=== PATIENT | female | born 1955 | race Caucasian/White ===

== ENCOUNTER 2017-03-23 09:54 | Emergency (ER) | payer MEDICAID ==
[~2017-03-23] VITALS: Ht 162.6 cm; Wt 78.9 kg
[2017-03-23] MEDS ORDERED: SODIUM CHLORIDE FLUSH 10ML SYR IVF ONE (10:30)
[2017-03-23] MEDS ORDERED: SODIUM CHLORIDE 0.9% 1,000ML IVBOLUS ONE ×2 (10:30→12:30)
[2017-03-23] MEDS ORDERED: KETOROLAC 30 MG/1 ML IVPush ONE (10:30)
[2017-03-23] MEDS ORDERED: ONDANSETRON 2MG/ML, 2ML IVPush ONE (10:30)
[2017-03-23] MEDS ORDERED: KETOROLAC 30 MG/1 ML ONE (10:32)
[2017-03-23] MEDS ORDERED: ONDANSETRON 2MG/ML, 2ML ONE (10:33)
[2017-03-23 10:54] LABS: BASOPHILS # (AUTO) 0.03 x10^3/uL (0-0.1); BASOPHILS % (AUTO) 0 % (0-1); EOSINOPHILS # (AUTO) 0.08 x10^3/uL (0-0.4); EOSINOPHILS % (AUTO) 1 % (1-7); LYMPHOCYTES # (AUTO) 2.18 x10^3/uL (1-3.4); LYMPHOCYTES % (AUTO) 22 % (22-44); MD NO; MEAN CORPUSCULAR HEMOGLOBIN 29.5 pg (27.0-34.8); MEAN CORPUSCULAR HGB CONC 33.1 g/dL (32.4-35.8); MEAN CORPUSCULAR VOLUME 88.9 fL (80-100); MEAN PLATELET VOLUME 7.7 fL (7.4-10.4); MONOCYTES # (AUTO) 0.71 x10^3/uL (0.2-0.8); MONOCYTES % (AUTO) 7 % (2-9); NEUTROPHILS # (AUTO) 6.76 x10^3/uL (1.8-6.8); NEUTROPHILS % (AUTO) 69 % (42-75); PLATELET COUNT 296 x10^3/uL (130-400); RED BLOOD COUNT 3.83 x10^6/uL (3.82-5.3); RED CELL DISTRIBUTION WIDTH 14.8 % (9.6-15.2)
[2017-03-23 10:58] LABS: ANION GAP 11 mmol/L (5-15); CALCIUM 9.4 mg/dL (8.5-10.1); CHLORIDE 102 mmol/L (98-107); CREATININE 0.69 mg/dL (0.55-1.02)
[2017-03-23 10:59] LABS: ALBUMIN 2.4 g/dL (3.4-5.0)
[2017-03-23 11:03] LABS: FREE T4 (FREE THYROXINE) 1.06 ng/dL (0.76-1.46); TROPONIN I < 0.015 ng/mL (0.000-0.045)
[2017-03-23 11:22] LABS: C-REACTIVE PROTEIN, QUANT > 19.00 mg/dL (0.02-0.49)
[2017-03-23] MEDS ORDERED: OMNIPAQUE 350 MG/ML, 100ML BOTTLE ONE (12:17)
[2017-03-23 13:16] LABS: MICROSCOPIC AUTO
[2017-03-23 13:19] LABS: CULTURE INDICATED? YES
[2017-03-23 13:54] VITALS: BP 106/67
== END 2017-03-23 13:57 | disposition home or self-care (01) ==
LOC: ED 12:31
DX: C50.919 Malignant neoplasm of unspecified site of unspecified female breast (principal); R07.2 Precordial pain; M25.552 Pain in left hip; M54.9 Dorsalgia, unspecified; Z85.3 Personal history of malignant neoplasm of breast; Z92.3 Personal history of irradiation
CPT/HCPCS: 36415; 70450; 71045; 71275; 73502; 80048; 81001; 82040; 84439; 84443; 84484; 85025; 85651; 86038; 86140; 87086; 93005; 96361; 96374; 99285; J1885; J7030; Q9967

== ENCOUNTER 2017-04-19 05:42 | Day surgery (SDC) | payer MEDICAID ==
[~2017-04-19] VITALS: Ht 162.6 cm; Wt 75.0 kg
[~2017-04-19 05:42] MED LIST changes: -SODIUM CHLORIDE 0.9% 1,000 ML IV SCH
[2017-04-19 07:20] VITALS: BP 135/85
[2017-04-19] MEDS ORDERED: SODIUM CHLORIDE 0.9% 1,000 ML IV SCH (07:30)
== END 2017-04-19 10:00 ==
LOC: OUT 05:42
PROVIDERS: ATTEND Internal Medicine
DX: C50.911 Malignant neoplasm of unspecified site of right female breast (principal); Z85.3 Personal history of malignant neoplasm of breast; Z98.890 Other specified postprocedural states
CPT/HCPCS: 20225; 77012; 88307; 88311; 99156; J7030; 88341; 88342; 99157; J2250; J3010; G0461; J2310

== ENCOUNTER → 2017-04-19 | Outpatient (CLI) | payer MEDICAID ==
[~2017-04-19] VITALS: Ht 162.6 cm; Wt 75.0 kg
[~2017-04-19] MED LIST: FENTANYL PF 100 MCG/2ML ONE; FLUMAZENIL 0.1 MG/1 ML, 5ML ONE; MIDAZOLAM 1 MG/ML, 2ML ONE; NALOXONE 1 MG/ML, 2ML ONE; SODIUM CHLORIDE 0.9% 1,000 ML IV SCH
[2017-04-19 06:57] VITALS: BP 135/85
== END ==
LOC: PETCFH 12:37
PROVIDERS: ATTEND Internal Medicine
DX: R93.0 Abnormal findings on diagnostic imaging of skull and head, not elsewhere classified (principal); K76.89 Other specified diseases of liver; R91.8 Other nonspecific abnormal finding of lung field; C50.311 Malignant neoplasm of lower-inner quadrant of right female breast
CPT/HCPCS: 78815; A9552; J2250; J3010; J2310

== ENCOUNTER → 2017-09-15 | Outpatient (CLI) | payer MEDICAID | END | disposition home or self-care (01) | LOC: PETCFH 08:42 | PROVIDERS: ATTEND Internal Medicine | DX: C50.311 Malignant neoplasm of lower-inner quadrant of right female breast (principal) | CPT/HCPCS: 78815; A9552 ==

== ENCOUNTER → 2018-01-06 | Outpatient (CLI) | payer MEDICAID ==
[~2018-01-06] MED LIST changes: -FENTANYL PF 100 MCG/2ML ONE; -FLUMAZENIL 0.1 MG/1 ML, 5ML ONE; -MIDAZOLAM 1 MG/ML, 2ML ONE; -NALOXONE 1 MG/ML, 2ML ONE; +OMNIPAQUE 350 MG/ML, 100ML BOTTLE ONE
== END | disposition home or self-care (01) ==
LOC: PETCFH 10:26
PROVIDERS: ATTEND Internal Medicine
DX: C79.51 Secondary malignant neoplasm of bone (principal); C50.311 Malignant neoplasm of lower-inner quadrant of right female breast; I25.10 Atherosclerotic heart disease of native coronary artery without angina pectoris; I70.0 Atherosclerosis of aorta; J84.10 Pulmonary fibrosis, unspecified; K76.89 Other specified diseases of liver; K76.0 Fatty (change of) liver, not elsewhere classified
CPT/HCPCS: 71260; 74177; 78306; A9503; Q9967

== ENCOUNTER 2018-02-08 17:22 | Emergency (ER) | payer MEDICAID ==
[~2018-02-08] VITALS: Ht 162.6 cm; Wt 73.0 kg
[2018-02-08] MEDS ORDERED: SODIUM CHLORIDE FLUSH 10ML SYR IVF ONE (17:30)
[2018-02-08] MEDS ORDERED: PALB100C PO (17:44)
[2018-02-08 18:16] LABS: ALBUMIN 2.8 g/dL (3.4-5.0); ANION GAP 7 mmol/L (5-15); CHLORIDE 103 mmol/L (98-107); INTERNATIONAL NORMALIZED RATIO 1.35 (0.93-1.1); PROTHROMBIN TIME 14.1 Seconds (9.6-11.5)
[2018-02-08 18:21] LABS: TROPONIN I < 0.015 ng/mL (0.000-0.045)
[2018-02-08 18:29] LABS: MEAN CORPUSCULAR HEMOGLOBIN 34.6 pg (27.0-34.8); MEAN CORPUSCULAR HGB CONC 33.6 g/dL (32.4-35.8); MEAN CORPUSCULAR VOLUME 102.9 fL (80-100); MEAN PLATELET VOLUME 8.8 fL (7.4-10.4); PLATELET COUNT 203 x10^3/uL (130-400); RED BLOOD COUNT 3.78 x10^6/uL (3.82-5.3)
[2018-02-08 18:47] LABS: MD YES
[2018-02-08 18:56] LABS: BAND#(MANUAL) 0.17 x10^3/uL; BANDS%(MANUAL) 3 % (0-7); BASOS#(MANUAL) 0.06 x10^3/uL (0-0.1); BASOS% (MANUAL) 1 % (0-1); LYMPHS% (MANUAL) 21 % (22-44); MONOS#(MANUAL) 0.46 x10^3/uL (0.3-2.7); MONOS% (MANUAL) 8 % (2-9); MYELOCYTES# (MANUAL) 0.06 x10^3/uL (0-0); MYELOCYTES% (MANUAL) 1 % (0-0); REACTIVE LYMPHS # (MANUAL) 0.17 x10^3/uL (0-0); REACTIVE LYMPHS % (MANUAL) 3 % (0-0); SEG#(MANUAL) 3.48 x10^3/uL (1.8-6.8); SEGS% (MANUAL) 61 % (42-75)
[2018-02-08 19:01] LABS: NRBC % (MANUAL) 5 % (0-1); OTHER CELLS # (MANUAL) 0.11 x10^3/uL (0-0); OTHER CELLS % (MANUAL) 2 % (0-0)
[2018-02-08 19:02] LABS: <PLATELET ESTIMATE> ADEQUATE; <PLT MORPHOLOGY> NORMAL PLT MORPH; POLYCHROMASIA 1+
[2018-02-08] MEDS ORDERED: OMNIPAQUE 350 MG/ML, 100ML BOTTLE ONE (19:03)
[2018-02-08 19:10] VITALS: BP 121/64
== END 2018-02-08 20:02 | disposition home or self-care (01) ==
LOC: ED 18:40
DX: R00.0 Tachycardia, unspecified (principal); C50.919 Malignant neoplasm of unspecified site of unspecified female breast; C79.51 Secondary malignant neoplasm of bone; R06.00 Dyspnea, unspecified
CPT/HCPCS: 36415; 71046; 71275; 80048; 82040; 83605; 83880; 84484; 85025; 85610; 85730; 87040; 99284; Q9967

== ENCOUNTER → 2018-02-08 | Outpatient (CLI) | payer MEDICAID ==
[~2018-02-08] MED LIST changes: -OMNIPAQUE 350 MG/ML, 100ML BOTTLE ONE; +PALB100C PO
== END | disposition home or self-care (01) ==
LOC: CVU 16:34
PROVIDERS: ATTEND Nurse Practitioner
DX: C50.311 Malignant neoplasm of lower-inner quadrant of right female breast (principal); C79.51 Secondary malignant neoplasm of bone; D64.9 Anemia, unspecified; D69.6 Thrombocytopenia, unspecified
CPT/HCPCS: 93005

== ENCOUNTER 2018-02-21 14:44 | Inpatient (IN) | payer MEDICAID ==
[~2018-02-21] VITALS: Ht 162.6 cm; Wt 72.6 kg
[2018-02-21] MEDS ORDERED: ONDANSETRON ODT 4 MG PO ONE (15:00)
[2018-02-21 15:29] LABS: ALANINE AMINOTRANSFERASE 140 U/L (12-78); ALBUMIN 2.3 g/dL (3.4-5.0); ANION GAP 10 mmol/L (5-15); CALCIUM 10.9 mg/dL (8.5-10.1); CHLORIDE 95 mmol/L (98-107); CREATININE 2.79 mg/dL (0.55-1.02)
[2018-02-21 15:42] LABS: ALKALINE PHOSPHATASE 1521 U/L (45-117); BILIRUBIN,TOTAL 6.3 mg/dL (0.2-1.0); TOTAL PROTEIN 5.6 g/dL (6.4-8.2)
[2018-02-21 16:00] LABS: MEAN CORPUSCULAR HEMOGLOBIN 34.4 pg (27.0-34.8); MEAN CORPUSCULAR HGB CONC 34.1 g/dL (32.4-35.8); MEAN CORPUSCULAR VOLUME 101.1 fL (80-100); RED BLOOD COUNT 3.05 x10^6/uL (3.82-5.3)
[2018-02-21 16:07] LABS: MD YES; MEAN PLATELET VOLUME 9.1 fL (7.4-10.4); PLATELET COUNT 41 x10^3/uL (130-400)
[2018-02-21 16:12] LABS: BAND#(MANUAL) 0.06 x10^3/uL; BANDS%(MANUAL) 2 % (0-7); NRBC % (MANUAL) 22 % (0-1)
[2018-02-21 16:13] LABS: <PLATELET ESTIMATE> DECREASED
[2018-02-21 16:14] LABS: ANISOCYTOSIS 2+; LARGE PLATELETS 1+; POLYCHROMASIA 1+
[2018-02-21 16:17] LABS: TARGET CELLS 1+
[2018-02-21] MEDS ORDERED: ONDANSETRON 2MG/ML, 2ML ONE (16:28)
[2018-02-21] MEDS ORDERED: HYDROmorphone 2 MG/ML, 1ML ONE (16:29)
[2018-02-21] MEDS ORDERED: ONDANSETRON 2MG/ML, 2ML IVPush ONE (16:30)
[2018-02-21] MEDS ORDERED: SODIUM CHLORIDE FLUSH 10ML SYR IVF ONE (16:30)
[2018-02-21] MEDS ORDERED: HYDROmorphone 2 MG/ML, 1ML IVPush PRN (16:30)
[2018-02-21 16:38] LABS: SPHEROCYTES 1+
--- NOTE | 2018-02-21 17:01 | NUR ---
PT PRESENTS TO ED WITH CO GENERALIZED PAIN AND NAUSEA. PT SITTING UP IN GURNEY, AWAKE/ALERT/APPROPRIATE. PT APPEARS JAUNDICED, DAUGHTER STATES THAT THIS IS NEW IV ESTABLISHED. PT MEDICATED PER EMAR FOR PAIN. BP/SPO2 MONITORING IN PLACE.
[2018-02-21 17:09] LABS: MONOS#(MANUAL) 0.16 x10^3/uL (0.3-2.7); MONOS% (MANUAL) 5 % (2-9)
[2018-02-21 17:10] LABS: SEGS% (MANUAL) 43 % (42-75)
[2018-02-21 17:11] LABS: SEG#(MANUAL) 1.38 x10^3/uL (1.8-6.8); SMUDGE CELLS 1+
[2018-02-21 17:13] LABS: LYMPH#(MANUAL) 1.44 x10^3/uL (1-3.4); LYMPHS% (MANUAL) 45 % (22-44); REACTIVE LYMPHS # (MANUAL) 0.16 x10^3/uL (0-0); REACTIVE LYMPHS % (MANUAL) 5 % (0-0)
--- NOTE | 2018-02-21 18:00 | NUR ---
PT REPORTS SIGNIFICANT IMPROVEMENT IN PAIN AND NAUSEA WITH MEDICATIONS. BP/SPO2/ECG MONITORING REMAIN IN PLACE. DAUGHTER AT BEDSIDE. AWAITING CT/US READ. PER ERP, NO URGENCY TO UA COLLECTION PT IS TO BE ADMITTED
[2018-02-21] MEDS ORDERED: CHEMO (18:08)
[2018-02-21 18:18] LABS: INTERNATIONAL NORMALIZED RATIO 1.81 (0.93-1.1)
[2018-02-21] MEDS ORDERED: SODIUM CHLORIDE FLUSH 10ML SYR IVF PRN (18:30)
[2018-02-21 18:37] LABS: PROTHROMBIN TIME 18.8 Seconds (9.6-11.5)
--- NOTE | 2018-02-21 18:47 | NUR ---
MRI SCREEN SENT
--- NOTE | 2018-02-21 19:14 | NUR ---
Report from JESSE Mendoza.
--- NOTE | 2018-02-21 19:25 | NUR ---
Report to JESSE Mcintosh.
[2018-02-21] MEDS ORDERED: ACETAMINOPHEN 325 MG TABLET PO PRN (19:30)
[2018-02-21] MEDS ORDERED: LORazepam 1MG TABLET PO PRN (19:30)
[2018-02-21] MEDS ORDERED: DOCUSATE 100 MG CAPSULE PO PRN (19:30)
[2018-02-21] MEDS ORDERED: ENOXAPARIN 30 MG/0.3 ML SQ SCH (19:30)
[2018-02-21] MEDS ORDERED: SODIUM CHLORIDE 0.9% 1,000ML IVBOLUS ONE (20:00)
[2018-02-21] MEDS: PALBOCICLIB MC SCH (20:30)
[2018-02-21] MEDS ORDERED: PHYTONADIONE 10 MG/ML, 1ML SQ ONE (20:30)
[2018-02-21 20:53] VITALS: BP 78/56
[2018-02-21 22:11] VITALS: BP 96/63
[2018-02-21 22:41] VITALS: BP 91/57
[2018-02-21] MEDS: SODIUM CHLORIDE 0.9% 1,000 ML IV SCH (22:43)
[2018-02-21] MEDS ORDERED: SODIUM POLYSTYRENE SULFONATE ORAL SUSP PO ONE (23:30)
[2018-02-21] MEDS ORDERED: DEXTROSE 50%, 50ML SYRINGE IVPush ONE (23:30)
[2018-02-21] MEDS ORDERED: INSULIN REGULAR 100 UNITS/ML, 3ML VIAL IVPush ONE (23:30)
[2018-02-22 00:25] VITALS: BP 91/54
[2018-02-22 01:42] VITALS: BP 92/61
[2018-02-22 03:18] VITALS: BP 106/71
[2018-02-22] MEDS: ONDANSETRON ODT 4 MG PO PRN ×2 (03:19→13:10)
[2018-02-22] MEDS: PALBOCICLIB MC SCH ×3 (03:44→17:23)
[2018-02-22 04:36] LABS: MEAN CORPUSCULAR HEMOGLOBIN 35.9 pg (27.0-34.8); MEAN CORPUSCULAR HGB CONC 35.6 g/dL (32.4-35.8); MEAN CORPUSCULAR VOLUME 100.7 fL (80-100); MEAN PLATELET VOLUME 8.6 fL (7.4-10.4); RED BLOOD COUNT 2.82 x10^6/uL (3.82-5.3); RED CELL DISTRIBUTION WIDTH 16.2 % (9.6-15.2)
[2018-02-22 04:39] LABS: PLATELET COUNT 29 x10^3/uL (130-400)
[2018-02-22 04:46] LABS: ANION GAP 13 mmol/L (5-15); CALCIUM 9.9 mg/dL (8.5-10.1); CHLORIDE 97 mmol/L (98-107); CREATININE 3.25 mg/dL (0.55-1.02)
[2018-02-22 04:54] LABS: MD YES
[2018-02-22 05:00] LABS: ANISOCYTOSIS 1+; BAND#(MANUAL) 0.04 x10^3/uL; BANDS%(MANUAL) 2 % (0-7); LYMPH#(MANUAL) 0.65 x10^3/uL (1-3.4); LYMPHS% (MANUAL) 31 % (22-44); MONOS#(MANUAL) 0.21 x10^3/uL (0.3-2.7); MONOS% (MANUAL) 10 % (2-9); NRBC % (MANUAL) 24 % (0-1); POLYCHROMASIA 1+; SEGS% (MANUAL) 57 % (42-75); SPHEROCYTES 1+
[2018-02-22 05:01] LABS: <PLATELET ESTIMATE> DECREASED; <PLT MORPHOLOGY> NORMAL PLT MORPH
[2018-02-22 06:01] LABS: MICROSCOPIC INDICATED
[2018-02-22 06:02] LABS: CULTURE INDICATED? YES
[2018-02-22] MEDS: SODIUM CHLORIDE 0.9% 1,000 ML IV SCH ×2 (06:32→17:14)
[2018-02-22 06:54] VITALS: BP 100/66
[2018-02-22] MEDS: HYDROmorphone 2 MG/ML, 1ML IVPush PRN ×2 (08:55→17:12)
[2018-02-22] MEDS ORDERED: PALBOCICLIB 100 MG PO SCH (09:00)
[2018-02-22 10:32] LABS: ALBUMIN 2.2 g/dL (3.4-5.0); BILIRUBIN, DIRECT 4.5 mg/dL (0.1-0.2)
[2018-02-22 10:46] LABS: BILIRUBIN,INDIRECT 1.1 mg/dL (0.0-2.0); BILIRUBIN,TOTAL 5.6 mg/dL (0.2-1.0); TOTAL PROTEIN 5.3 g/dL (6.4-8.2)
[2018-02-22] MEDS ORDERED: LACTATED RINGERS 1,000 ML IVBOLUS ONE (13:00)
[2018-02-22 13:23] VITALS: BP 98/65
[2018-02-22 20:14] VITALS: BP 97/65
[2018-02-23] VITALS (7 sets, daily range): BP systolic 83–106; BP diastolic 50–67
[2018-02-23] MEDS: SODIUM CHLORIDE 0.9% 1,000 ML IV SCH ×3 (01:01→22:38)
[2018-02-23] MEDS: PALBOCICLIB MC SCH ×3 (01:03→19:48)
[2018-02-23 05:17] LABS: ALBUMIN 2.1 g/dL (3.4-5.0); ANION GAP 12 mmol/L (5-15); CALCIUM 8.9 mg/dL (8.5-10.1); CHLORIDE 102 mmol/L (98-107); CREATININE 3.88 mg/dL (0.55-1.02)
[2018-02-23 05:23] LABS: MD YES
[2018-02-23 05:25] LABS: MEAN CORPUSCULAR HEMOGLOBIN 35.1 pg (27.0-34.8); MEAN CORPUSCULAR HGB CONC 34.2 g/dL (32.4-35.8); MEAN CORPUSCULAR VOLUME 102.6 fL (80-100); MEAN PLATELET VOLUME 11.1 fL (7.4-10.4); RED BLOOD COUNT 2.77 x10^6/uL (3.82-5.3); RED CELL DISTRIBUTION WIDTH 16.6 % (9.6-15.2)
[2018-02-23 05:26] LABS: PLATELET COUNT 17 x10^3/uL (130-400)
[2018-02-23 05:29] LABS: LYMPHS% (MANUAL) 16 % (22-44); MONOS#(MANUAL) 0.08 x10^3/uL (0.3-2.7); MONOS% (MANUAL) 4 % (2-9); NRBC % (MANUAL) 30 % (0-1); SEG#(MANUAL) 1.52 x10^3/uL (1.8-6.8); SEGS% (MANUAL) 80 % (42-75)
[2018-02-23 05:30] LABS: ANISOCYTOSIS 1+; POLYCHROMASIA 1+; SPHEROCYTES 1+
[2018-02-23 05:31] LABS: <PLATELET ESTIMATE> DECREASED; LARGE PLATELETS 1+
[2018-02-23] MEDS ORDERED: SODIUM POLYSTYRENE SULFONATE ORAL SUSP PO ONE (08:30)
[2018-02-23] MEDS ORDERED: INSULIN REGULAR 100 UNITS/ML, 3ML VIAL IVPush ONE (10:00)
[2018-02-23] MEDS ORDERED: DEXTROSE 50%, 50ML SYRINGE IVPush ONE (10:00)
[2018-02-23] MEDS ORDERED: LORazepam 2 MG/ML, 1ML IVPush ONE (10:30)
[2018-02-23] MEDS: ONDANSETRON ODT 4 MG PO PRN (10:31)
[2018-02-23] MEDS ORDERED: LORazepam 2 MG/ML, 1ML ONE (10:34)
[2018-02-23] MEDS ORDERED: SODIUM CHLORIDE 0.9% 1,000ML IVBOLUS ONE (11:30)
[2018-02-23 12:34] LABS: ABSOLUTE RETICS # 0.032 x10^6/uL (0.5-2.5); RED BLOOD COUNT 2.61 x10^6/uL (3.82-5.3); RETICULOCYTE COUNT % 1.21 % (0.5-1.5)
[2018-02-23 13:18] LABS: D-DIMER (DIC) 14.08 ug/mlFEU (0.00-0.52)
[2018-02-23 13:25] LABS: ALANINE AMINOTRANSFERASE 172 U/L (12-78); BILIRUBIN, DIRECT 4.7 mg/dL (0.1-0.2)
[2018-02-23 13:33] LABS: BILIRUBIN,INDIRECT 1.5 mg/dL (0.0-2.0); BILIRUBIN,TOTAL 6.2 mg/dL (0.2-1.0)
[2018-02-23 13:37] LABS: TOTAL PROTEIN 5.2 g/dL (6.4-8.2)
[2018-02-23 13:40] LABS: ALKALINE PHOSPHATASE 1360 U/L (45-117)
[2018-02-23 14:35] LABS: CALCIUM 7.9 mg/dL (8.5-10.1); CHLORIDE 103 mmol/L (98-107)
[2018-02-23 14:50] LABS: CREATININE,URINE RANDOM 90.9 mg/dL
[2018-02-23 14:59] LABS: ANION GAP 12 mmol/L (5-15); CREATININE 4.21 mg/dL (0.55-1.02)
[2018-02-23 15:00] LABS: ALANINE AMINOTRANSFERASE 171 U/L (12-78); ALBUMIN 2.1 g/dL (3.4-5.0); ALKALINE PHOSPHATASE 1296 U/L (45-117); BILIRUBIN,TOTAL 6.1 mg/dL (0.2-1.0); TOTAL PROTEIN 5.1 g/dL (6.4-8.2)
[2018-02-23 16:17] LABS: CREATININE,URINE RANDOM 87.2 mg/dL
[2018-02-24 01:30] VITALS: BP 94/60
[2018-02-24] MEDS: PALBOCICLIB MC SCH ×3 (04:14→21:40)
[2018-02-24 05:58] LABS: MEAN CORPUSCULAR HGB CONC 33.9 g/dL (32.4-35.8); MEAN CORPUSCULAR VOLUME 103.3 fL (80-100); MEAN PLATELET VOLUME 9.9 fL (7.4-10.4); RED BLOOD COUNT 2.78 x10^6/uL (3.82-5.3); RED CELL DISTRIBUTION WIDTH 16.4 % (9.6-15.2)
[2018-02-24 06:02] LABS: CHLORIDE 103 mmol/L (98-107)
[2018-02-24 06:06] LABS: PLATELET COUNT 20 x10^3/uL (130-400)
[2018-02-24 06:19] LABS: MD YES
[2018-02-24 06:25] LABS: LYMPHS% (MANUAL) 29 % (22-44); MONOS#(MANUAL) 0.05 x10^3/uL (0.3-2.7); MONOS% (MANUAL) 2 % (2-9); NRBC % (MANUAL) 40 % (0-1); SEG#(MANUAL) 1.66 x10^3/uL (1.8-6.8); SEGS% (MANUAL) 69 % (42-75)
[2018-02-24 06:26] LABS: <PLATELET ESTIMATE> DECREASED; ANISOCYTOSIS 1+; POLYCHROMASIA 1+; SPHEROCYTES 1+
[2018-02-24 06:28] LABS: <PLT MORPHOLOGY> NORMAL PLT MORPH
[2018-02-24 06:34] LABS: ALANINE AMINOTRANSFERASE 202 U/L (12-78); ALBUMIN 2.2 g/dL (3.4-5.0); ALKALINE PHOSPHATASE 1389 U/L (45-117); ANION GAP 15 mmol/L (5-15); BILIRUBIN,TOTAL 7.7 mg/dL (0.2-1.0); TOTAL PROTEIN 5.3 g/dL (6.4-8.2)
[2018-02-24 07:04] VITALS: BP 103/68
[2018-02-24] MEDS: SODIUM CHLORIDE 0.9% 1,000 ML IV SCH ×2 (10:04→21:40)
[2018-02-24 14:04] VITALS: BP 109/74
[2018-02-24 18:45] VITALS: BP 105/69
[2018-02-25 00:44] VITALS: BP 96/52
[2018-02-25] MEDS: SODIUM CHLORIDE 0.9% 1,000 ML IV SCH ×2 (03:42→10:20)
[2018-02-25] MEDS: PALBOCICLIB MC SCH (04:30)
[2018-02-25 05:42] LABS: ALANINE AMINOTRANSFERASE 224 U/L (12-78); ALBUMIN 2.1 g/dL (3.4-5.0); ANION GAP 14 mmol/L (5-15); CALCIUM 7.5 mg/dL (8.5-10.1); CHLORIDE 103 mmol/L (98-107); CREATININE 4.61 mg/dL (0.55-1.02)
[2018-02-25 06:01] LABS: ALKALINE PHOSPHATASE 1360 U/L (45-117); BILIRUBIN,TOTAL 8.1 mg/dL (0.2-1.0); TOTAL PROTEIN 5.3 g/dL (6.4-8.2)
[2018-02-25 06:16] LABS: MEAN CORPUSCULAR HEMOGLOBIN 35.7 pg (27.0-34.8); MEAN CORPUSCULAR HGB CONC 34.7 g/dL (32.4-35.8); RED BLOOD COUNT 2.76 x10^6/uL (3.82-5.3); RED CELL DISTRIBUTION WIDTH 16.4 % (9.6-15.2)
[2018-02-25] MEDS ORDERED: DEXTROSE 50%, 50ML SYRINGE IVPush ONE (06:30)
[2018-02-25] MEDS ORDERED: INSULIN REGULAR 100 UNITS/ML, 3ML VIAL IV ONE (06:30)
[2018-02-25 06:51] LABS: MEAN PLATELET VOLUME 10.1 fL (7.4-10.4)
[2018-02-25 06:52] LABS: MD YES
[2018-02-25 06:53] LABS: PLATELET COUNT 17 x10^3/uL (130-400)
[2018-02-25 07:29] VITALS: BP 89/59
[2018-02-25 08:35] LABS: BAND#(MANUAL) 0.05 x10^3/uL; BANDS%(MANUAL) 2 % (0-7); LYMPHS% (MANUAL) 16 % (22-44); NRBC % (MANUAL) 51 % (0-1); SEG#(MANUAL) 2.05 x10^3/uL (1.8-6.8); SEGS% (MANUAL) 82 % (42-75)
[2018-02-25 08:36] LABS: ANISOCYTOSIS 1+; POLYCHROMASIA 1+
[2018-02-25 08:37] LABS: <PLATELET ESTIMATE> DECREASED; <PLT MORPHOLOGY> NORMAL PLT MORPH; SPHEROCYTES 1+
[2018-02-25] MEDS ORDERED: LORA-446 PO (09:32)
== END 2018-02-25 11:54 | disposition hospice, home (50) | DRG 441 ==
LOC: ED 16:25 → EDIP 18:27 → 3NW 20:05 → 4WST 02-23 20:03
PROVIDERS: ADMIT Family Medicine; ATTEND Family Medicine
DX: K72.00 Acute and subacute hepatic failure without coma (principal); D61.810 Antineoplastic chemotherapy induced pancytopenia; K85.90 Acute pancreatitis without necrosis or infection, unspecified; C78.7 Secondary malignant neoplasm of liver and intrahepatic bile duct; C79.51 Secondary malignant neoplasm of bone; D68.9 Coagulation defect, unspecified; E87.1 Hypo-osmolality and hyponatremia; E87.2 Acidosis; N17.9 Acute kidney failure, unspecified; C50.919 Malignant neoplasm of unspecified site of unspecified female breast; E86.1 Hypovolemia; E87.5 Hyperkalemia; R62.7 Adult failure to thrive; T45.1X5A Adverse effect of antineoplastic and immunosuppressive drugs, initial encounter; Z80.8 Family history of malignant neoplasm of other organs or systems; Z87.891 Personal history of nicotine dependence; Z66 Do not resuscitate; F12.90 Cannabis use, unspecified, uncomplicated; Z88.6 Allergy status to analgesic agent
CPT/HCPCS: 36415; 70450; 74181; 76700; 76770; 80048; 80053; 80069; 80076; 81001; 82140; 82436; 82570; 82962; 83010; 83605; 83615; 83690; 84132; 84133; 84156; 84300; 85025; 85045; 85049; 85379; 85384; 85610; 85730; 86300; 86880; 86900; 87040; 87086; 96374; 96375; 99285; G0378; J1170; J1815; J2405; J3430; Q0162; J7030; J7120